=== PATIENT | male | born 1965 | race Caucasian/White ===

== ENCOUNTER → 2023-04-16 15:13 | Outpatient (BNVA) | payer OTHER, SELFPAY | PROVIDERS: PCP Family Medicine; Visit Provider Student in an Organized Health Care Education/Training Program | DX: M65.341 Trigger finger, right ring finger | CPT/HCPCS: 99204 ==

== ENCOUNTER 2023-06-06 08:50 | Day surgery (SDC) | payer OTHER, SELFPAY ==
[2023-06-06] VITALS (7 sets, daily range): BP systolic 107–152; BP diastolic 76–95; PULSE 67–91; RESP 16–20; TEMP 36.1–36.6; O2SAT 95–99; BMI 24.4
--- NOTE | 2023-06-06 09:07 | P.HP_ITS ---
Same Day Surgery H&P Indication for Procedure/HPI DATE OF PROCEDURE: June 06, 2023 CHIEF COMPLAINT/INDICATIONFOR SURGICAL PROCEDURE: Right ring finger trigger PREOP DIAGNOSIS: Right ring finger trigger PLANNED PROCEDURE: Operation Date: 06/06/23 10:05 Proposed Procedures p Trigger Finger Release/ right ring finger trigger release(Right) - Miguel Rosa t, DO Medications/Allergies* Home Medications Medication Instructions Recorded Confirmed Type fluoxetine 20 mg capsule 20 mg PO DAILY 04/16/23 06/05/23 History ibuprofen 800 mg tablet 800 mg PO Q6H 04/16/23 06/05/23 History metformin 500 mg tablet 500 mg PO BID 04/16/23 06/05/23 History pregabalin 150 mg capsule (Lyrica) 150 mg PO BID 04/16/23 06/05/23 History Allergies/Adverse Reactions Allergy/AdvReac Type Severity Reaction Status Date / Time No Known Allergies Allergy Verified 06/06/23 09:02 Pertinent Exam Findings alert, oriented x 3, operative site marked and procedure specific exam findings Tenderness over the A1 rene of the right ring finger with mechanical triggering noted Recommendations Surgery/Procedure today Other Plans: Plan to proceed to the OR today with right ring finger trigger release Coding Level of Care Code Acute Code for Chg Fwd
[2023-06-06] MEDS: ketorolac 30 mg/mL INJ IVP (09:30)
[2023-06-06] MEDS: sodium chloride 0.9% 1,000 ML 30 ML IV (09:31)
[2023-06-06] MEDS: acetaminophen 1,000 MG/100 ML PIGGYBACK 400 MG IV (09:35)
[2023-06-06] MEDS: scopolamine 1.5 Patch 1 PATCH TRANSDERMA (09:37)
--- NOTE | 2023-06-06 09:58 | P.ANESASSM_ITS ---
Pre-Anesthetic Assessment Height/Weight: Height 1.8 m Weight 79.379 kg Temp Pulse Resp BP Pulse Ox O2 Del Method 97.4 F L 73 18 152/95 95 Room Air 06/06/23 09:06 06/06/23 09:06 06/06/23 09:06 06/06/23 09:06 06/06/23 09:06 06/06/23 09:12 Preop Diagnosis: Right ring finger trigger Operation Date: 06/06/23 10:05 Proposed Procedures p Trigger Finger Release/ right ring finger trigger release(Right) - Miguel Pleasants, DO Was Beta Shayne taken within 24 hours: N/A Was Clonidine taken within 24 hours: N/A Last intake: Intake Last Liquid Date 06/05/23 Last Liquid Time 21:00 Last Solid Date 06/05/23 Last Solid Time 20:00 Social No alcohol and No tobacco Exam alert, oriented x 3, clear to auscultation bilaterally and regular rate & rhythm Airway Submandibular: within normal limits Cervical ROM: within normal limits Mallampati: Class II Dentition: false History/ROS No significant history except as noted and No significant complaints Pulmonary None reported CV/HEM Hypertension None reported Hepatic None reported GI None reported Metabolic Diabetes Mellitus Neuropsych None reported Anesthetic Plan ASA status: 2 Anesthesia: Anesthesia Evaluation and MAC Risk of > 500 ml blood loss (7ml/kg in children): No Medications/Allergies Home Medications Medication Instructions Recorded Confirmed Last Taken Type fluoxetine 20 mg capsule 20 mg PO DAILY 04/16/23 06/05/23 06/05/23 History ibuprofen 800 mg tablet 800 mg PO Q6H 04/16/23 06/05/23 06/05/23 History metformin 500 mg tablet 500 mg PO BID 04/16/23 06/06/23 Unknown History pregabalin 150 mg capsule (Lyrica) 150 mg PO BID 04/16/23 06/05/23 06/05/23 History Allergies Allergy/AdvReac Type Severity Reaction Status Date / Time No Known Allergies Allergy Verified 06/06/23 09:02 Current Medications Generic Name Dose Route Start Last Admin Trade Name Freq PRN Reason Stop Dose Admin Sodium Chloride 1,000 mls @ 30 mls/hr 06/06/23 09:00 06/06/23 09:31 Sodium Chloride 0.9% IV 06/07/23 08:59 30 mls/hr .Q24H JESSE Administration Data Anesthesia Cardiac Studies: No Data to Display
[2023-06-06] MEDS: ceFAZolin 2,000 MG in sodium chloride 0.9% (plus) 50 ML 100 MG IV (10:05)
[2023-06-06] MEDS: BUPivacaine 0.5% INJ 10 mL 5 ML INJECTION (10:29)
[2023-06-06] MEDS: ROPivacaine 0.5% SDV 30 mL 25 MG INJECTION (10:29)
--- NOTE | 2023-06-06 10:37 | W.PM.BPON ---
Date of Procedure: 06/06/2023 Surgeon: Miguel Jones DO Oriental Rug Stretcher(s): None Procedure(s) performed: Right ring finger trigger release Findings of the procedure(s): Patient was found to have a significant right ring finger trigger underwent procedure release out any complications or issues Estimated blood loss: 2 mL Specimen(s) removed: None Post-operative diagnosis: Right ring finger trigger
--- NOTE | 2023-06-06 10:39 | P.OP_ITS ---
Operative Report Date of procedure: June 06, 2023 Surgeon: Mgiuel Jones DO Procedure: Preoperative diagnosis right ring finger trigger post-op diagnosis: Same Procedure done: Right ring?finger?trigger?release Surgeon: Miguel Jones DO Estimated blood loss: 1cc Tourniquet time 7mins Complications: None Condition: stable Disposition: same day Brief History: Patient's been seen and worked up in the outpatient setting and findings consistent with preoperative diagnosis of right ring?finger?trigger.? He is failed conservative treatment.? Continues to have mechanical locking and catching.? Severe pain as well.? We talked about treatment options nonoperative versus operative intervention.? ?Patient understands the risk benefits complication alternatives of surgical nonsurgical treatment options.? Understanding his risks with surgery he elects proceed with surgical intervention.? Consent obtained in the office.? Here today to proceed with surgical intervention.? All questions answered. Procedure: Patient was seen and evaluated in the preoperative holding area.? Consent was reviewed and signed with patient.? Seen evaluated by Anesthesia Department.? Once cleared for surgery was brought back to the operative suite.? Placed in supine position on the OR table all bony prominences well-padded patient properly secured to the bed.? Patient's right arm was then placed to the armboard.? A nonsterile tourniquet applied to the right upper arm.? Patient's right upper extremity was then prepped and draped in standard orthopedic fashion.? Final timeout performed.? Patient received appropriate preoperative antibiotics. Esmarch tourniquet was used exsanguinate the right upper extremity tourniquet insufflated to 250 mmHg. Under sterile aseptic technique local digital block was performed to the right ring?finger.? Once appropriately anesthetized a standard horizontal/oblique incision was made centering over the A1 rene following patient's flexor crease.? Sharp scalpel incision was made only through skin and then switched to Littler dissection scissors and spread longitudinally directly over the flexor tendon sheath.? I then mobilized both radially and ulnarly and Kasdan retractors were used and placed by my bilingual administrative assistant to protect neurovascular bundle.? Next I visualized the A1 rene and this was incised with a scalpel.? I then switched to dissection scissors and released the A1 rene both proximally as well as distally to its entirety.? Significant tendon sheath fluid was noted consistent with inflammation.? Mild fraying of the flexor tendons noted but no tear.? At this point I utilized a rag nail and pulled the tendons FDS and FDP out of the incision and no?triggering was noted.? I then had anesthesia wake up the patient and patient was able to actively flex and extend with no?triggering.? This point thorough irrigation was performed.? Tourniquet deflated hemostasis satisfactory with bipolar.? I then subsequently closed the incision with interrupted nylon suture.? Xeroform 4 x 4's, Kerlix and an Giovany wrap was applied for a bulky soft dressing.? Patient was then subsequently awakened from anesthesia and taken to PACU in stable condition tolerated procedure without issues. Disposition: Patient taken back in stable condition recovering well.? Patient will receive appropriate discharge instruction as well as pain medication postoperatively.? Patient to follow-up with me in the office in 2 weeks for repeat evaluation and incision check.? Patient understands that any questions or concerns and contact the office.? All questions answered.
--- NOTE | 2023-06-06 20:17 | ANE.PACU2 ---
Inpatient post-anesthesia follow up: Airway intact: Yes Vital signs: Temperature 97.8 F Pulse Rate 91 Respiratory Rate 18 Blood Pressure 123/77 Pulse Oximetry 98 Oxygen Delivery Me thod Room Air Oxygen Flow Rate Fraction of Inspir ed Oxygen Hydration adequate: Yes Nausea and vomiting: No Pain level: 1 Mental status: Baseline
[2023-06-07 07:27] LABS: Glucose Point of Care 133 mg/dL (70-110)
== END 2023-06-06 11:41 | disposition home or self-care (01) ==
PROVIDERS: PCP Family Medicine; Visit Provider Student in an Organized Health Care Education/Training Program
PROC: (CPT 26055; principal; 2023-06-06 10:05)
DX: M65.341 Trigger finger, right ring finger (principal); I10 Essential (primary) hypertension; E11.9 Type 2 diabetes mellitus without complications
CPT/HCPCS: 26055; 36416; 82962; J0131; J0690; J1885; J2704; J2795; J3490; J7030

== ENCOUNTER → 2023-06-20 14:18 | Outpatient (BNVA) | payer OTHER, SELFPAY | PROVIDERS: PCP Family Medicine; Visit Provider Physician Assistant | DX: Z98.890 Other specified postprocedural states (principal) | CPT/HCPCS: 99024 ==